=== PATIENT | female | born 1940 | race Caucasian/White ===

== ENCOUNTER 2016-12-05 09:49 | Outpatient (CLI) ==
[2014-09-29 18:09] VITALS: BMI 24.1
[2016-12-05] MEDS ORDERED: RECLAST 5 MG/100 ML SOLUTION 5 MG in PREMIX INFUSION 100 ML VIAL 1 VIAL IV ONE (09:59)
[2016-12-05 10:49] LABS: CALCIUM 9.9 mg/dL (8.2-10.2); CREATININE 0.76 mg/dL (0.60-1.30)
[2016-12-05 11:39] VITALS: BP 139/74; TEMP 96.5
--- NOTE | 2016-12-07 07:53 | MAMMO ---
EXAM: Bilateral digital screening mammogram History: Screening Comparison: Bilateral mammogram 05/13/2009 Findings: MLO and CC views of bilateral breasts demonstrate scattered fibroglandular breast parench yma. There are no dominant masses, no suspicious microcalcifications and no architectural distortio ns. Impression: Stable negative mammogram. Recommend followup routine screening mammography in 1 year. BIRADS 1
== END 2016-12-05 09:50 | disposition home or self-care (01) ==
LOC: OPMED 09:49
PROVIDERS: ATTEND Emergency Medicine
DX: Z12.31 Encounter for screening mammogram for malignant neoplasm of breast (principal); M81.0 Age-related osteoporosis without current pathological fracture
CPT/HCPCS: 36415; 82310; 82565; 96365

== ENCOUNTER 2018-02-12 09:03 | Emergency (ER) ==
[2018-02-12 09:14] VITALS: BP 149/77; TEMP 98; BMI 11.4
[2018-02-12] MEDS ORDERED: MORPHINE 2 MG/ML SYRINGE IVP STA (09:25)
[2018-02-12] MEDS: ZOFRAN 4 MG/2 ML IVP STA (09:32)
[2018-02-12] MEDS: MORPHINE 4 MG/ML SYRINGE IVP STA (09:34)
--- NOTE | 2018-02-12 10:53 | CT ---
Exam: CT of the chest without contrast History: Cough Technique: [address] of the chest without intravascular contrast FINDINGS: The lung windows show no infiltrative opacities, suspicious nodules or masses. No pleural fluid is present. Atherosclerotic calcification of the aorta without aneurysm. No pathologic lymph node enlargement mediastinum. No acute findings of the chest wall soft tissues or bony thorax. See abdominal CT for upper abdomen. Impression: 1. No acute findings of the chest
--- NOTE | 2018-02-12 11:08 | ED.PDOC ---
General ED Provider: Dr. BERNARD SMALLS Chief Complaint: Abdominal Pain Stated Complaint: abdominal pain Time Seen by Physician: 09:00 Mode of Arrival: Stretcher Information Source: Patient, Family, EMT Exam Limitations: No limitations Primary Care Provider: CARRILLO MOSS Referred to ED by: Other (last meal last night last bowel movent last night had diarrhea this morning) Nursing and Triage Documentation Reviewed and Agree: Yes Reviewed sepsis parameters & appropriate labs ordered?: Yes (abdominal pain sudden onset 4 hours ago diffuse vomiting ) System Inflammatory Response Syndrome: Not Applicable Sepsis Protocol: For patient's 13 years and over: Temp is 96.8 and below OR 101 and greater Pulse >90 BPM Resp >20/minute Acutely Altered Mental Status Are patient's symptoms suggestive of a new infection, such as: -Pneumonia -Skin, Soft Tissue -Endocarditis -UTI -Bone, Joint Infection -Implantable Device -Acute Abdominal Infection -Wound Infection -Meningitis -Blood Stream Catheter Infection -Unknown System Inflammatory Response Syndrome: Not Applicable GI Complaint Exam - Abdominal Pain Complaint/Exam Onset: Sudden Duration: 4 hours abdominal pain diffuse Symptoms Are: Still present Timing: Intermittent Initial Severity: Moderate Current Severity: Moderate Location of Pain: Diffuse Character: Reports: Aching, Cramping Aggravating: Reports: None Alleviating: Reports: None Associated Signs and Symptoms: Reports: Vomiting. Denies: Diaphoresis, Fever, Cough, Chest pain, Dizziness, Back pain, Constipation, Blood in stool, Dysuria, Urinary frequency, Decreased urine output, Decreased appetite, Vaginal bleeding , Vaginal discharge, Nausea, Diarrhea, Sore throat, Decreased activity AAA Risk Factors: Reports: Smoking, Hypertension Cardiac Risk Factors: Reports: Hypertension, Smoking Ovarian Torsion Risk Factors: Reports: Hysterectomy Surgical Obstruction Risk Factors: Reports: None Related Surgical History: Reports: Cholecystectomy, Appendectomy Patient Rh Status: Unknown Abdominal Findings: Present: Abdominal distention, Rebound tenderness Differential Diagnoses: Bowel Obstruction, Diverticulitis, Gastroenteritis, Pancreatitis Quality Indicators for AMI: EKG in 10min. Quality Indicators for Cardiac Chest Pain: EKG in 10min. Quality Indicator For Non-Traumatic Chest Pain/Syncope: EKG Performed Review of Systems - Review Of Systems Constitutional: Reports: No symptoms Eyes: Reports: No symptoms Ears, Nose, Mouth, Throat: Reports: No symptoms Respiratory: Reports: No symptoms Cardiac: Reports: No symptoms GI: Reports: Abdominal pain, Nausea, Vomiting : Reports: No symptoms Musculoskeletal: Reports: No symptoms Skin: Reports: No symptoms Neurological: Reports: No symptoms Endocrine: Reports: No symptoms Hematologic/Lymphatic: Reports: No symptoms All Other Systems: Reviewed and Negative Past Medical History - Past Medical History Previously Healthy: No Endocrine: Reports: None Cardiovascular: Reports: Hypertension Respiratory: Reports: None Hematological: Reports: None Gastrointestinal: Reports: GERD Genitourinary: Reports: None Neuro/Psych: Reports: None, Anxiety Musculoskeletal: Reports: None Cancer: Reports: None Last Menstrual Period: hysterectomy - Surgical History General Surgical History: Reports: Hysterectomy, Cholecystectomy - Family History Family History: Reports: None - Social History Smoking Status: Current every day smoker, Heavy tobacco smoker Hx Substance Use: No Alcohol Screening: None Physical Exam - Physical Exam Appearance: Ill-appearing Ill-appearing: Mild Pain Distress: Moderate Eyes: ENRIQUE, EOMI, Conjunctiva clear ENT: Ears normal, Nose normal, Oropharynx normal Respiratory: Airway patent, Breath sounds clear, Breath sounds equal, Respirations nonlabored Cardiovascular: RRR, Pulses normal, No rub, No murmur GI/: Tender Musculoskeletal: Normal strength, ROM intact, No edema, No calf tenderness Skin: Warm, Dry, Normal color Neurological: Sensation intact, Motor intact, Reflexes intact, Cranial nerves intact, Alert, Oriented Psychiatric: Affect appropriate, Mood appropriate Critical Care Note - Critical Care Note Total Time (mins): 0 Course - Course Hematology/Chemistry: 02/12/18 09:50 02/12/18 09:50 Orders, Labs, Meds: Lab Review 02/12/18 02/12/18 02/12/18 09:50 09:50 09:50 WBC 9.07 RBC 4.03 L Hgb 12.6 Hct 36.5 L MCV 90.6 MCH 31.3 H MCHC 34.5 RDW Coeff of Gemini 14.3 Plt Count 650 H Immature Gran % (Auto) 0.4 Neut % (Auto) 84.7 Lymph % (Auto) 7.9 L [place] % (Auto) 6.3 Eos % (Auto) 0.1 Baso % (Auto) 0.6 Immature Gran # (Auto) 0.0 Neut # (Auto) 7.7 H Lymph # (Auto) 0.7 [place] # (Auto) 0.6 Eos # (Auto) 0.0 Baso # (Auto) 0.1 PT INR APTT Sodium 138 Potassium 3.4 L Chloride 101 Carbon Dioxide 24 Anion Gap 16.4 BUN 7 Creatinine 0.68 Estimated GFR (MDRD) 84.00 BUN/Creatinine Ratio 10.29 Glucose 144 H Calcium 10.0 Total Bilirubin 0.4 AST 21 ALT 17 Alkaline Phosphatase 82 Total Creatine Kinase 45 Troponin I < 0.0100 Total Protein 8.3 H Albumin 4.4 Globulin 3.9 Albumin/Globulin Ratio 1.13 Procalcitonin < 0.05 Urine Color Urine Clarity Urine pH Ur Specific [place] Urine Protein Urine Glucose (UA) Urine Ketones Urine Blood Urine Nitrite Urine Bilirubin Urine Urobilinogen Ur Leukocyte Esterase Urine Microscopic WBC Ur Squamous Epith Cells Urine Bacteria 02/12/18 02/12/18 09:50 10:09 WBC RBC Hgb Hct MCV MCH MCHC RDW Coeff of Gemini Plt Count Immature Gran % (Auto) Neut % (Auto) Lymph % (Auto) [place] % (Auto) Eos % (Auto) Baso % (Auto) Immature Gran # (Auto) Neut # (Auto) Lymph # (Auto) [place] # (Auto) Eos # (Auto) Baso # (Auto) PT 10.0 INR 0.98 APTT 31.2 Sodium Potassium Chloride Carbon Dioxide Anion Gap BUN Creatinine Estimated GFR (MDRD) BUN/Creatinine Ratio Glucose Calcium Total Bilirubin AST ALT Alkaline Phosphatase Total Creatine Kinase Troponin I Total Protein Albumin Globulin Albumin/Globulin Ratio Procalcitonin Urine Color Yellow Urine Clarity Cloudy Urine pH 7.0 Ur Specific [place] 1.020 Urine Protein Negative Urine Glucose (UA) Negative Urine Ketones Negative Urine Blood 1+ Urine Nitrite Negative Urine Bilirubin Negative Urine Urobilinogen 0.2 Ur Leukocyte Esterase 1+ Urine Microscopic WBC 10-20 Ur Squamous Epith Cells Not present Urine Bacteria 3+ Orders Category Date Time Status EKG-(ED ONLY) Stat CARDIO 02/12/18 09:21 Completed BLOOD CULTURE Stat LAB 02/12/18 09:50 Received CBC W/ AUTO DIFF Stat LAB 02/12/18 09:50 Completed COMPREHENSIVE METABOLIC PANEL Stat LAB 02/12/18 09:50 Completed CREATINE KINASE Stat LAB 02/12/18 09:50 Completed PARTIAL THROMBOPLASTIN TIME Stat LAB 02/12/18 09:50 Completed PROCALCITONIN Stat LAB 02/12/18 09:50 Completed PT WITH INR Stat LAB 02/12/18 09:50 Completed TROPONIN I Stat LAB 02/12/18 09:50 Completed URINALYSIS C & S IF INDICATED Stat LAB 02/12/18 10:09 Completed URINE CULTURE Stat LAB 02/12/18 10:09 Received 0.9 % Sodium Chloride [Saline Flush] MEDS 02/12/18 09:25 Active 1 syr IVF PRN PRN Morphine Sulfate [Morphine 4 mg/ml Syringe] MEDS 02/12/18 09:26 Discontinued 4 mg IVP ONCE STA Ondansetron HCl/Pf [Zofran 4 mg/2 ml] MEDS 02/12/18 09:25 Discontinued 4 mg IVP ONCE STA CT ABDOMEN/PELVIS WO CONTRAST Stat RADS 02/12/18 10:[address] CHEST W/O CONTRAST Stat RADS 02/12/18 09:26 Completed Medications Generic Name Dose Route Start Last Admin Trade Name Freq PRN Reason Stop Dose Admin Sodium Chloride 1 syr 02/12/18 09:25 Saline Flush IVF PRN PRN To flush IV Discontinued Medications Generic Name Dose Route Start Last Admin Trade Name Freq PRN Reason Stop Dose Admin Morphine Sulfate 4 mg 02/12/18 09:26 02/12/18 09:34 Morphine 4 Mg/Ml Syringe IVP 02/12/18 09:27 4 mg ONCE STA Administration Ondansetron HCl 4 mg 02/12/18 09:25 02/12/18 09:32 Zofran 4 Mg/2 Ml IVP 02/12/18 09:26 4 mg ONCE STA Administration Vital Signs: Temp Pulse Resp BP Pulse Ox 02/12/18 09:03 98 F 94 H 18 149/77 H 95 Departure - Departure Time of Disposition: 11:09 Disposition: TSF SHORT-TRM HOSP Discharge Problem: Abdominal pain, Small bowel obstruction Instructions: Bowel Obstruction (ED) Condition: Good Pt referred to PMD for follow-up: Yes IPMP verified?: No Additional Instructions: Please call your Family Physician as soon as possible to schedule a follow-up appointment. Allergies/Adverse Reactions: Allergies No Known Allergies Allergy (Verified 02/12/18 09:16) Home Medications: Ambulatory Orders Alprazolam [Alprazolam] 0.25 mg PO DAILY 09/29/14 Omeprazole [Omeprazole] 20 mg pe PO DAILY 09/29/14 Aspirin [Aspir-Low] 81 mg PO DAILY 02/12/18 Budesonide/Formoterol Fumarate [Symbicort 160-4.5 Mcg Inhaler] 2 puff IH BID Cyclobenzaprine HCl [Flexeril] 10 mg PO BID 02/12/18 Duloxetine HCl [Cymbalta] 60 mg PO DAILY 02/12/18 Enalapril Maleate 5 mg PO BID 02/12/18 Ferrous Sulfate 325 mg PO TID 02/12/18 Meclizine HCl 25 mg PO DAILY PRN 02/12/18 Naproxen 500 mg PO BID 02/12/18 Oxycodone HCl 10 mg PO QID 02/12/18 Rosuvastatin Calcium [Crestor] 10 mg PO BEDTIME 02/12/18 Zoledronic Acid/Mannitol&Water [Reclast 5 mg/100 ml Solution] 5 mg IV ONCE 02/12 Transfer Form Completed: Yes Disposition Discussed With: Patient, Family
--- NOTE | 2018-02-12 11:09 | CT ---
EXAM: CT of the abdomen pelvis without contrast History: Abdominal pain. Comparison: CT abdomen 03/29/2009 Technique: Multiple sonographic images through the abdomen pelvis were obtained without the administ ration of IV contrast Findings: Trace pericardial fluid. Dependent atelectasis within the lower lungs. No acute osseous a bnormalities. Severe degenerate changes within the lumbar spine. Status post cholecystectomy. No focal liver or splenic lesions. No renal stones and no hydronephros is. No peripancreatic inflammation. Adrenal glands are unremarkable. No bladder wall thickening. No free air. No ascites. Moderate to large amount colonic stool. Colonic diverticulosis. Short se gment narrowing of the sigmoid colon. There are fluid filled dilated loops of small bowel with trans ition point probably within the mid lower abdomen and there is mesenteric edema. Impression: 1. Small bowel obstruction. 2. [id number] amount colonic stool suggesting constipation. 3. Focal narrowing of the sigmoid colon could be due to incomplete distension but cannot exclude inf lammatory or malignant stricture. Follow-up / further evaluation recommended. 4. Colonic diverticulosis. Critical results communicated to Dr. Perez at 11:03 a.m. 02/12/2018
[2018-02-12] MEDS: MORPHINE 10 MG/ML SYRINGE IVP STA (11:25)
[2018-02-12] MEDS: MORPHINE 4 MG/ML VIAL IVP STA (11:37)
[2018-02-12] MEDS: ZOSYN 3.375 GM 3.375 GM in SODIUM CHLORIDE 50 ML IV STA (11:42)
== END 2018-02-12 12:53 | disposition short-term general hospital (02) ==
LOC: ED 09:03
DX: K56.609 Unspecified intestinal obstruction, unspecified as to partial versus complete obstruction (principal); I10 Essential (primary) hypertension; F17.210 Nicotine dependence, cigarettes, uncomplicated; Z79.899 Other long term (current) drug therapy; R11.2 Nausea with vomiting, unspecified; R10.30 Lower abdominal pain, unspecified
CPT/HCPCS: 36415; 80053; 81001; 82550; 84145; 84484; 85025; 85610; 85730; 87040; 87086; 87186; 93005; 93010; 96365; 96375; 96376; 99285

== ENCOUNTER 2018-03-07 10:32 | Outpatient (CLI) | END 2018-03-07 10:33 | disposition home or self-care (01) | LOC: LAB 10:32 | PROVIDERS: ATTEND Internal Medicine | DX: D64.9 Anemia, unspecified (principal) | CPT/HCPCS: 36415; 85025 ==

== ENCOUNTER 2018-04-17 19:52 | Emergency (ER) ==
[2018-04-17 19:56] VITALS: BP 107/63; TEMP 98.2; BMI 22.1
[2018-04-17] MEDS ORDERED: SODIUM CHLORIDE 500 ML IV STA (20:03)
--- NOTE | 2018-04-17 21:12 | CT ---
EXAM: Noncontrast CT of the abdomen and pelvis HISTORY: Diarrhea, history of clostridium difficile COMPARISON: 02/12/2018 TECHNIQUE: Noncontrast CT of the abdomen and pelvis FINDINGS: There is a trace left pleural effusion and mild left lower lobe ground-glass opacity. Noncontrast technique limits evaluation of the abdominal viscera. The unenhanced liver, spleen, adren als, kidneys and pancreas appear within normal limits. The gallbladder has been removed. No abnormal small bowel dilation is seen. Mild diverticulosis is present. There is diffuse prominent colonic wall thickening with adjacent fat stranding. There is also rectal wall thickening. The append ix is not definitely identified. The uterus has been removed. There is calcified atherosclerotic plaque of the aorta and some of its b ranches. No free air or significant free fluid is seen. Right inguinal surgical clips are present. Th ere is levoscoliosis of the lumbar spine with severe multilevel degenerative disc disease and facet a rthropathy. IMPRESSION: Prominent diffuse colonic wall thickening with adjacent fat stranding compatible with palmer colitis. Mild diverticulosis. Status post cholecystectomy and hysterectomy. Atherosclerosis. Trace left pleural effusion with mild left lower lobe atelectasis and/or pneumonitis. Other chronic and incidental findings as described above.
--- NOTE | 2018-04-17 21:21 | ED.PDOC ---
General ED Provider: Dr. MILTON SOTO-ER Chief Complaint: Abdominal Pain Stated Complaint: my c diff is coming back Time Seen by Physician: 19:55 Mode of Arrival: Walk-In Information Source: Patient, Family Exam Limitations: No limitations Primary Care Provider: CARRILLO MOSS Nursing and Triage Documentation Reviewed and Agree: Yes Reviewed sepsis parameters & appropriate labs ordered?: Yes System Inflammatory Response Syndrome: Not Applicable Sepsis Protocol: For patient's 13 years and over: Temp is 96.8 and below OR 101 and greater Pulse >90 BPM Resp >20/minute Acutely Altered Mental Status Are patient's symptoms suggestive of a new infection, such as: -Pneumonia -Skin, Soft Tissue -Endocarditis -UTI -Bone, Joint Infection -Implantable Device -Acute Abdominal Infection -Wound Infection -Meningitis -Blood Stream Catheter Infection -Unknown GI Complaint Exam - Vomiting/Diarrhea Complaint/Exam Onset/Duration: 2 days Symptoms Are: Still present Episodes of Diarrhea Over Last 24 Hours: 10 Initial Severity: Mild Current Severity: Mild Character of Vomiting: Reports: Non-bilious Character of Diarrhea: Reports: Watery Aggravating: Reports: None Alleviating: Reports: None Associated Signs and Symptoms: Reports: Abdominal pain, Cramping Recent Positive Test: No Use of Oral Contraceptives: No Use of Depoprovera: No Compliant With Contraceptive Use: No Non-GI Risk Factors: Reports: None Related Surgical History: Reports: Appendectomy, Small bowel obstruction Abdominal Findings: Present: None Kussmaul Respirations Present: No Differential Diagnoses: Dehydration, Bacterial Gastroenteritis, Other Review of Systems - Review Of Systems Constitutional: Reports: No symptoms Eyes: Reports: No symptoms Ears, Nose, Mouth, Throat: Reports: No symptoms Respiratory: Reports: No symptoms Cardiac: Reports: No symptoms GI: Reports: Diarrhea, Nausea, Poor appetite, Poor fluid intake : Reports: No symptoms Musculoskeletal: Reports: No symptoms Skin: Reports: No symptoms Neurological: Reports: No symptoms Endocrine: Reports: No symptoms Hematologic/Lymphatic: Reports: No symptoms All Other Systems: Reviewed and Negative Past Medical History - Past Medical History Previously Healthy: No Endocrine: Reports: None Cardiovascular: Reports: Hypertension Respiratory: Reports: None Hematological: Reports: None Gastrointestinal: Reports: GERD Genitourinary: Reports: None Neuro/Psych: Reports: None, Anxiety Musculoskeletal: Reports: None Cancer: Reports: None Last Menstrual Period: HYSTERECTOMY - Surgical History General Surgical History: Reports: Hysterectomy, Cholecystectomy - Family History Family History: Reports: None - Social History Smoking Status: Current every day smoker, Heavy tobacco smoker Hx Substance Use: No Alcohol Screening: None - Immunizations Tetanus Shot up to Date: Yes Physical Exam - Physical Exam Appearance: Well-appearing, Thin Ill-appearing: Mild Eyes: ENRIQUE ENT: Ears normal Neck: Supple Respiratory: Airway patent, Breath sounds clear, Breath sounds equal, Respirations nonlabored Cardiovascular: RRR, Pulses normal, No rub, No murmur GI/: Soft Musculoskeletal: Normal strength Skin: Warm Neurological: Sensation intact Psychiatric: Affect appropriate, Mood appropriate, Anxious Interpretation - Radiology Interpretation Radiology Interpretation By: Radiologist Radiology Results: Positive Exam Interpreted: CT Scan (") Physician Notification - Case Discussed Physician Notified: dr foley--not comfortable admittinhg due to thrombocytosis Time of Notification: 21:42 Physician Notified: dr obando--graciously acceptec Time of Notification: 21:47 Critical Care Note - Critical Care Note Total Time (mins): 0 Course - Course Hematology/Chemistry: 04/17/18 21:36 04/17/18 20:19 Orders, Labs, Meds: Lab Review 04/17/18 04/17/18 04/17/18 20:19 20:19 20:40 WBC 16.35 H RBC 3.26 L Hgb 9.7 L Hct 29.7 L MCV 91.1 MCH 29.8 MCHC 32.7 RDW Coeff of Gemini 15.9 H Plt Count 1096 H* Immature Gran % (Auto) 1.7 Neut % (Auto) 72.2 Lymph % (Auto) 13.4 [place] % (Auto) 10.7 H Eos % (Auto) 1.6 Baso % (Auto) 0.4 Immature Gran # (Auto) 0.3 Neut # (Auto) 11.8 H Lymph # (Auto) 2.2 [place] # (Auto) 1.8 Eos # (Auto) 0.3 Baso # (Auto) 0.1 Sodium 136 Potassium 4.4 Chloride 102 Carbon Dioxide 24 Anion Gap 14.4 BUN 10 Creatinine 0.71 Estimated GFR (MDRD) 80.00 BUN/Creatinine Ratio 14.08 Glucose 125 H Calcium 9.7 Total Bilirubin 0.3 AST 17 ALT 11 L Alkaline Phosphatase 96 Total Protein 7.2 Albumin 3.0 L Globulin 4.2 Albumin/Globulin Ratio 0.71 Urine Color Yellow Urine Clarity Cloudy Urine pH 5.5 Ur Specific [place] 1.015 Urine Protein 1+ Urine Glucose (UA) Negative Urine Ketones Trace Urine Blood Negative Urine Nitrite Negative Urine Bilirubin Negative Urine Urobilinogen 0.2 Ur Leukocyte Esterase 2+ Urine Microscopic RBC 2-5 Urine Microscopic WBC 30-50 Ur Squamous Epith Cells 5-10 Urine Bacteria 2+ Urine Mucus 1+ 04/17/18 21:36 WBC 14.59 H RBC 2.90 L Hgb 8.4 L Hct 26.6 L MCV 91.7 MCH 29.0 MCHC 31.6 L RDW Coeff of Gemini 15.9 H Plt Count 891 H Immature Gran % (Auto) 1.4 Neut % (Auto) 70.9 Lymph % (Auto) 14.5 [place] % (Auto) 11.7 H Eos % (Auto) 1.3 Baso % (Auto) 0.2 Immature Gran # (Auto) 0.2 Neut # (Auto) 10.3 H Lymph # (Auto) 2.1 [place] # (Auto) 1.7 Eos # (Auto) 0.2 Baso # (Auto) 0.0 Sodium Potassium Chloride Carbon Dioxide Anion Gap BUN Creatinine Estimated GFR (MDRD) BUN/Creatinine Ratio Glucose Calcium Total Bilirubin AST ALT Alkaline Phosphatase Total Protein Albumin Globulin Albumin/Globulin Ratio Urine Color Urine Clarity Urine pH Ur Specific [place] Urine Protein Urine Glucose (UA) Urine Ketones Urine Blood Urine Nitrite Urine Bilirubin Urine Urobilinogen Ur Leukocyte Esterase Urine Microscopic RBC Urine Microscopic WBC Ur Squamous Epith Cells Urine Bacteria Urine Mucus Orders Category Date Time Status ED IV/MEDIPORT/POWERPORT .ONCE EMERGENCY 04/17/18 20:03 Active CBC W/ AUTO DIFF Stat LAB 04/17/18 20:19 Completed CBC W/ AUTO DIFF Stat LAB 04/17/18 21:36 Completed COMPREHENSIVE METABOLIC PANEL Stat LAB 04/17/18 20:19 Completed UA [URINALYSIS C & S IF INDICATED] Stat LAB 04/17/18 20:40 Completed URINE CULTURE Stat LAB 04/17/18 20:40 Received 0.9 % Sodium Chloride [Saline Flush] MEDS 04/17/18 20:03 Ordered 1 syr IVF PRN PRN Sodium Chloride 0.9% [Sodium Chloride] 500 ml MEDS 04/17/18 20:[address] ABDOMEN/PELVIS WO CONTRAST Stat RADS 04/17/18 20:03 Completed Medications Generic Name Dose Route Start Last Admin Trade Name Ramo PRN Reason Stop Dose Admin Sodium Chloride 1 syr 04/17/18 20:03 Saline Flush IVF PRN PRN To flush IV Discontinued Medications Generic Name Dose Route Start Last Admin Trade Name Ramo PRN Reason Stop Dose Admin Sodium Chloride 500 mls @ 500 mls/hr 04/17/18 20:03 04/17/18 21:01 Sodium Chloride IV 04/17/18 21:02 500 mls/hr BOLUS STA Administration Vital Signs: Temp Pulse Resp BP Pulse Ox 04/17/18 19:52 98.2 F 95 H 16 107/63 95 Departure - Departure Time of Disposition: 21:47 Disposition: TSF SHORT-TRM HOSP Discharge Problem: Colitis Instructions: Colitis (ED) Condition: Good Pt referred to PMD for follow-up: Yes IPMP verified?: No Allergies/Adverse Reactions: Allergies No Known Allergies Allergy (Verified 04/17/18 19:55) Home Medications: Ambulatory Orders Alprazolam 0.25 mg PO DAILY 09/29/14 Omeprazole 20 mg pe PO DAILY 09/29/14 Aspirin [Aspir-Low] 81 mg PO DAILY 02/12/18 Budesonide/Formoterol Fumarate [Symbicort 160-4.5 Mcg Inhaler] 2 puff IH BID Cyclobenzaprine HCl [Flexeril] 10 mg PO BID 02/12/18 Duloxetine HCl [Cymbalta] 60 mg PO DAILY 02/12/18 Enalapril Maleate 5 mg PO BID 02/12/18 Ferrous Sulfate 325 mg PO TID 02/12/18 Meclizine HCl 25 mg PO DAILY PRN 02/12/18 Naproxen 500 mg PO BID 02/12/18 Oxycodone HCl 10 mg PO QID 02/12/18 Rosuvastatin Calcium [Crestor] 10 mg PO BEDTIME 02/12/18 Zoledronic Acid/Mannitol&Water [Reclast 5 mg/100 ml Solution] 5 mg IV ONCE 02/12 Transfer Form Completed: Yes Disposition Discussed With: Patient, Family
== END 2018-04-17 22:30 | disposition short-term general hospital (02) ==
LOC: ED 19:52
DX: K52.9 Noninfective gastroenteritis and colitis, unspecified (principal); D47.3 Essential (hemorrhagic) thrombocythemia; R10.9 Unspecified abdominal pain; Z79.899 Other long term (current) drug therapy; F17.210 Nicotine dependence, cigarettes, uncomplicated
CPT/HCPCS: 36415; 80053; 81001; 85025; 87086; 87186; 96360; 96361; 99285

== ENCOUNTER 2018-05-01 11:03 | Outpatient (CLI) | END 2018-05-01 11:04 | disposition home or self-care (01) | LOC: LAB 11:03 | PROVIDERS: ATTEND Internal Medicine | DX: E87.5 Hyperkalemia (principal) | CPT/HCPCS: 36415; 80053 ==

== ENCOUNTER 2019-02-20 10:00 | Outpatient (CLI) | END 2019-02-20 10:01 | disposition home or self-care (01) | LOC: LAB 10:00 | PROVIDERS: ATTEND Internal Medicine | DX: E87.5 Hyperkalemia (principal) | CPT/HCPCS: 36415; 80053 ==